=== PATIENT | male | born 1950 | race Caucasian/White ===

== ENCOUNTER 2024-02-20 22:03 | Emergency (ER) | payer MEDICARE, OTHER, SELFPAY ==
[2024-02-20] VITALS (16 sets, daily range): BP systolic 90–121; BP diastolic 63–81; PULSE 68–79; RESP 13–18; O2SAT 91–96
--- NOTE | 2024-02-20 22:14 | XRR_ITS ---
PROCEDURE INFORMATION: Exam: XR Chest Exam date and time: 02/20/2024 10:15 PM Age: 73 years old Clinical indication: Pain; Chest pressure; Prior surgery; Surgery date: <1 month; Surgery type: Cabg; Additional info: Chest pain TECHNIQUE: Imaging protocol: Radiologic exam of the chest. Views: 1 view. COMPARISON: No relevant prior studies available. FINDINGS: Lungs: Unremarkable. No consolidation. Pleural spaces: Unremarkable. No pleural effusion. No pneumothorax. Heart/Mediastinum: Unremarkable. No cardiomegaly. Bones/joints: Unremarkable. XR/XR chest 1V portable [id number] IMPRESSION: No acute findings.
--- NOTE | 2024-02-20 22:14 | ECG_ITS ---
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 Measurements Intervals [place] Rate: 77 P: 66 GA: 185 QRS: 121 QRSD: 107 T: 76 QT: 336 QTc: 381 Interpretive Statements SINUS RHYTHM INCOMPLETE RIGHT BUNDLE BRANCH BLOCK [90+ ms QRS DURATION, TERMINAL R IN V1/V2, 40+ ms S IN I/aVL/V4/V5/V6] POSSIBLE RIGHT VENTRICULAR HYPERTROPHY [SOME/ALL OF: PROMINENT R IN V1, LATE TRANSITION, RAD, ABDULAZIZ, SSS] PROBABLE INFERIOR MYOCARDIAL INFARCTION , OF INDETERMINATE AGE [35 ms Q WAVE IN II/aVF] No previous ECG available for comparison Electronically Signed On 02-21-2024 18:29:44 MONEY POSITION OFFICER by Oswaldo George M.D. [id number]
--- NOTE | 2024-02-20 22:25 | ED_ITS ---
HPI - Chest Pain 2 General: Chief Complaint: Chest Pain Stated Complaint: chest pain Time Seen by Provider: 02/20/24 22:14 History of Present Illness: Patient presents to the ER with a mild chest pressure/pain in his left chest that radiates to his left shoulder region. Patient said is hard to describe. Patient denies any shortness of breath, diaphoresis, nausea vomiting, patient does have a history of CAD with a three-vessel CABG done approximately a week and a half ago up at [place]. Patient was feeling better after the CABG up until a couple hours ago today. Patient is on Plavix. Related Data Allergies Allergy/AdvReac Type Severity Reaction Status Date / Time ramipril Allergy ADR-Diarrhe Verified 02/20/24 22:09 a Physical Exam 2 Const: COMMON NORMALS: no acute distress, average body habitus, patient oriented x3, no limitations, healthy appearing, alert and well nourished HENMT: COMMON NORMALS: normocephalic, atraumatic, hearing grossly normal bilaterally, external ears normal, Normal external nose present and moist oral mucous membranes HEAD & SCALP: normocephalic and atraumatic NOSE: Normal external nose present EXTERNAL EAR: Yes external ears normal Neck/C-Spine: COMMON NORMALS: no JVD Resp: COMMON NORMALS: normal respiratory effort, No retractions, No use of accessory muscles and clear to auscultation bilaterally AUSCULTATION: clear to auscultation bilaterally Cardio: COMMON NORMALS: no JVD, regular rate, regular rhythm, S1 normal heart sound present, S2 normal heart sound present, No gallops present (Cardio), No clicks present (Cardio), No murmurs present (Cardio) and No rub (Cardio) R ATE: regular rate RHYTHM: regular rhythm HEART SOUNDS: S1 normal heart sound present and S2 normal heart sound present GI: COMMON NORMALS: Normal to inspection, nondistended, normoactive bowel sounds present, Soft to palpation, non-tender, No hepatosplenomegaly present and no masses PALPATION: Yes Soft to palpation and Yes No hepatosplenomegaly present Neuro: COMMON NORMALS: patient oriented x3 SENSORIUM/ORIENTATION: Yes alert Course 2 Vital Signs: Vital signs: Vital Signs Pulse Rate 72 02/21/24 01:10 Respiratory Rate 18 02/21/24 01:10 Blood Pressure 110/74 02/21/24 01:10 Pulse Oximetry 97 02/21/24 01:10 Oxygen Delivery Me thod Room Air 02/20/24 22:59 MDM - Chest Pain Medical Decision Making Patient serial labs serial EKGs serial enzymes, elevated troponins due to his CABG will over a week ago, lab 52, 2-hour troponin was 1038, for decrease of 114 points, patient pain-free during his stay here. Patient's elevated BUN/creatinine of 45 and 2.2 as well as elevated liver enzymes of 59 and 101, these results was discussed with the patient and his son. Patient be discharged home. Medical Records I reviewed the patient's medical records. Lab Data I reviewed the patient's lab results. 02/20/24 22:25 02/20/24 22:25 Radiology Impressions Chest X-Ray 02/20/24 22:14 IMPRESSION: No acute findings. Laboratory Results WBC 12.70 10^3/uL (3.29-11.43) H 02/20/24 22:25 RBC 3.57 10^6/uL (3.85-5.65) L 02/20/24 22:25 Hgb 10.70 g/dL (11.27-16.99) L 02/20/24 22: Hct 32.9 % (37-53) L 02/20/24 22: MCV 92.2 fl (82-101) 02/20/24 22:25 MCH 30.0 pg (27-33) 02/20/24 22: MCHC 32.5 g/dL (30-55) 02/20/24 22: RDW 12.6 % (12.1-15.1) 02/20/24 22: Plt Count 338 10^3/cmm (157-399) 02/20/24 22:25 MPV 11.1 fL (7.4-10.4) H 02/20/24 22: Neut % (Auto) 71.7 % 02/20/24 22: Lymph % (Auto) 13.9 % 02/20/24 22: [place] % (Auto) 8.4 % 02/20/24 22: Eos % (Auto) 4.7 % 02/20/24 22: Baso % (Auto) 0.4 % 02/20/24 22: Neut # (Auto) 9.09 10^3/uL (1.8-7.7) H 02/20/24 22:25 Lymph # (Auto) 1.8 10^3/uL (0.8-4.8) 02/20/24 22:25 [place] # (Auto) 1.1 10^3/uL (0.2-0.9) H 02/20/24 22:25 Eos # (Auto) 0.6 10^3/uL (0.0-0.8) 02/20/24 22:25 Baso # (Auto) 0.1 10^3/uL (0.0-0.1) 02/20/24 22: Nucleated RBC % (auto) 0 % 02/20/24: Nucleated RBCs # 0.0 /100WBC 02/20/24 22:25 PT 15.40 SECONDS (12.1-14.9) H 02/20/24 22:25 INR 1.18 (0.8-1.2) 02/20/24 22:25 Sodium 136 mmol/L (136-145) 02/20/24 22:25 Potassium 4.2 mmol/L (3.5-5.1) 02/20/24 22:25 Chloride 100 mmol/L (98-107) 02/20/24 22:25 Carbon Dioxide 20 mmol/L (22-29) L 02/20/24 22:25 Anion Gap 20.2 (5-19) H 02/20/24 22:25 BUN 45 mg/dL (8-23) H 02/20/24 22:25 Creatinine 2.2 mg/dL (0.7-1.2) H 02/20/24 22:25 GFR Calculation Not Reportable 02/20/24 22:25 Glucose 212 mg/dL (65-115) H 02/20/24 22:25 Calculated Osmolality 300 mOsm/kg (285-295) H 02/20/24 22:25 Calcium 8.9 mg/dL (8.5-10.5) 02/20/24 22:25 Total Bilirubin 0.5 mg/dL (0.15-1.2) 02/20/24 22:25 AST 59 U/L (0-40) H 02/20/24 22:25 ALT 101 U/L (0-41) H 02/20/24 22:25 Alkaline Phosphatase 84 U/L (40-130) 02/20/24 22:25 Troponin T Baseline 1152 ng/L (0-15) H* 02/20/24 22:25 Troponin T 120 Minute 1038 ng/L (0-15) H 02/21/24 00:22 Delta Troponin T -114 ABS# (0-10) L 02/21/24 00:22 Total Protein 6.5 g/dL (6.6-8.7) L 02/20/24 22:25 Albumin 4.0 g/dL (3.5-5.2) 02/20/24 22:25 Globulin 2.5 g/dL (1.3-4.6) 02/20/24 22:25 All radiology interpretation(s) finalized by discharge Discharge Plan Discharge Patient Disposition: Home Clinical Impression: Acute kidney insufficiency Chest pain Qualifiers: Chest pain type: unspecified Qualified Code(s): R07.9 - Chest pain, unspecified Condition: Stable Discharge Orders: Discharge ED (Routine); Ordered 02/21/24 Ordered By: Eliazar Miranda Patient Instructions: Chest Pain (ED) Activity Restrictions/Additional Instructions: Thank you for choosing [facility] for your healthcare needs today. Please realize that you were seen in the emergency department and that we are providing you with an emergency medical screening exam and this may not be a complete and all exclusive of all testing and/or medical workup we may need to determine your element or severity of your illness. It is very important that you follow-up as instructed with your primary care provider or specialist for the additional evaluation and to discuss your medical treatment plan. You may return to the emergency department should you have concerns or if your condition changes or worsens in any way. Coding Level of Care Code ED Forester [employer] for Kaela Suárez
[2024-02-20 22:30] LABS: Basophils # 0.1 10^3/uL (0.0-0.1); Basophils % 0.4 %; Eosinophils # 0.6 10^3/uL (0.0-0.8); Eosinophils % 4.7 %; Hematocrit 32.9 % (37-53); Lymphocytes # 1.8 10^3/uL (0.8-4.8); Lymphocytes % 13.9 %; Mean Corpuscular HGB Conc 32.5 g/dL (30-55); Mean Corpuscular Volume 92.2 fl (82-101); Mean Platelet Volume 11.1 fL (7.4-10.4); Monocytes # 1.1 10^3/uL (0.2-0.9); Monocytes % 8.4 %; Neutrophils # 9.09 10^3/uL (1.8-7.7); Neutrophils % 71.7 %; Nucleated Red Blood Cells % 0 %; Platelet Count 338 10^3/cmm (157-399); Red Blood Count 3.57 10^6/uL (3.85-5.65); Red Cell Distribution Width 12.6 % (12.1-15.1)
[2024-02-20 22:45] LABS: INR 1.18 (0.8-1.2)
[2024-02-20] MEDS: nitroglycerin 0.4 mg sublingual Tablet SUBLINGUAL (22:47)
[2024-02-20] MEDS: morphine 4 mg/mL SDV 1 mL IVP (22:47)
[2024-02-20 22:54] LABS: Troponin(5th) Baseline 1152 ng/L (0-15)
[2024-02-20 22:58] LABS: Alanine Aminotransferase 101 U/L (0-41); Alkaline Phosphatase 84 U/L (40-130); Anion Gap 20.2 (5-19); Aspartate Amino Transferase 59 U/L (0-40); Blood Urea Nitrogen 45 mg/dL (8-23); Calcium 8.9 mg/dL (8.5-10.5); Carbon Dioxide 20 mmol/L (22-29); Chloride 100 mmol/L (98-107); Globulin 2.5 g/dL (1.3-4.6); Glucose 212 mg/dL (65-115); Osmolality Calculated 300 mOsm/kg (285-295); Potassium 4.2 mmol/L (3.5-5.1); Sodium 136 mmol/L (136-145); Total Bilirubin 0.5 mg/dL (0.15-1.2); Total Protein 6.5 g/dL (6.6-8.7)
[2024-02-21] VITALS (17 sets, daily range): BP systolic 110–129; BP diastolic 67–80; PULSE 69–73; RESP 12–21; O2SAT 94–98
--- NOTE | 2024-02-21 00:14 | ECG_ITS ---
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 Measurements Intervals [place] Rate: 72 P: 84 DE: 151 QRS: 152 QRSD: 117 T: 135 QT: 424 QTc: 466 Interpretive Statements SINUS RHYTHM INCOMPLETE RIGHT BUNDLE BRANCH BLOCK [90+ ms QRS DURATION, TERMINAL R IN V1/V2, 40+ ms S IN I/aVL/V4/V5/V6] POSSIBLE RIGHT VENTRICULAR HYPERTROPHY [SOME/ALL OF: PROMINENT R IN V1, LATE TRANSITION, RAD, ABDULAZIZ, SSS] INFERIOR MYOCARDIAL INFARCTION , OF INDETERMINATE AGE [40+ ms Q WAVE AND/OR ST/T ABNORMALITY IN II/aVF] Compared to ECG 02/20/2024 22:13:08 No significant changes Electronically Signed On 02-21-2024 18:38:24 BENCH ASSEMBLER by Oswaldo George M.D. [id number]
[2024-02-21 00:54] LABS: Troponin 5 2HR Delta -114 ABS# (0-10)
[2024-02-21 00:55] LABS: Troponin 5 2HR 1038 ng/L (0-15)
== END 2024-02-21 01:25 | disposition home or self-care (01) ==
PROVIDERS: Emergency Provider Emergency Medicine
DX: N28.9 Disorder of kidney and ureter, unspecified (principal); R07.9 Chest pain, unspecified
CPT/HCPCS: 36415; 71045; 80053; 84484; 85025; 85610; 93005; 96374; 99285; J2270

== ENCOUNTER 2024-02-21 21:58 | Emergency (ER) | payer MEDICARE, OTHER, SELFPAY ==
[2024-02-21] VITALS (20 sets, daily range): BP systolic 114–124; BP diastolic 71–90; PULSE 78–96; RESP 17–22; TEMP 36.6; O2SAT 91–96; BMI 33.2
--- NOTE | 2024-02-21 22:01 | CTR_ITS ---
PROCEDURE INFORMATION: Exam: CTA Chest With Contrast Exam date and time: 02/21/2024 10:12 PM Age: 73 years old Clinical indication: Pain; Shortness of breath; Chest pressure; Prior surgery; Surgery date: 3-7 days post-operative; Surgery type: Cabg one week ago; Patient HX: C/O chest discomfort with new onset of SOB starting today. ; Additional info: Sudden onset short of breath, recent cabg 1 week ago TECHNIQUE: Imaging protocol: Computed tomographic angiography of the chest with contrast. Exam focused on the arteries. 3D rendering (Not supervised by radiologist): MIP and/or 3D reconstructed images were created by the technologist. Radiation optimization: All CT scans at this facility use at least one of these dose optimization techniques: automated exposure control; mA and/or kV adjustment per patient size (includes targeted exams where dose is matched to clinical indication); or iterative reconstruction. Contrast material: OMNI 350; Contrast volume: 75 ml; Contrast route: INTRAVENOUS (IV); COMPARISON: CR (CHEST, ) 02/20/2024 10:15 PM RADIATION DOSE METRICS: Total DLP (mGy-cm): 420.59 FINDINGS: Pulmonary arteries: There is a pulmonary embolism in the pulmonary trunk extending to bilateral main pulmonary arteries , involving the right lower lobe, right middle and right upper lobe branches and left lower lobe and lingular branches. Aorta: Unremarkable. No aortic aneurysm. No aortic dissection. Thyroid: Calcified right thyroid nodule measuring 5 mm. Lungs: There are bilateral lower lobe dependent atelectasis. Patchy consolidation in the posterior basal segment of the right lower lobe. Pleural spaces: There is a small right pleural effusion. Heart: There is a small pericardial effusion. Heart RV/LV ratio: The RV to LV ratio is 1.2. Lymph nodes: Unremarkable. No enlarged lymph nodes. Bones/joints: Sternotomy wires and mediastinal surgical clips are present, consistent with previous coronary arterial bypass grafting. The thoracic spine demonstrates mild degenerative changes at multiple levels. Soft tissues: Unremarkable. CT/CT angio chest PE protcl [id number] IMPRESSION: 1. Large pulmonary embolism in the main pulmonary trunk and the major pulmonary arteries with findings of right heart strain. 2. Patchy consolidation in the posterior basal segment of the right lower lobe that might be related to pulmonary infarct. COMMENTS: Consistent with the [employer]'s Incidental Findings Committee white paper (J Am Ann Radiol 2015): In patients aged 35 years and older with an incidental thyroid nodule equal to or greater than 1.[address], MRI or extrathyroidal US, further evaluation with dedicated thyroid US is recommended for patients with normal life expectancy and without comorbidities. For smaller nodules without suspicious features, no further evaluation or follow up is recommended.
--- NOTE | 2024-02-21 22:01 | ECG_ITS ---
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 Measurements Intervals [place] Rate: 92 P: 72 VT: 170 QRS: 78 QRSD: 120 T: 45 QT: 400 QTc: 496 Interpretive Statements SINUS RHYTHM POSSIBLE INFERIOR MYOCARDIAL INFARCTION , OF INDETERMINATE AGE [30 ms Q WAVE IN II/aVF] Compared to ECG 02/21/2024 01:10:03 Incomplete right bundle-branch block no longer present Myocardial infarct finding still present Electronically Signed On 02-23-2024 20:09:20 HAIRSPRING CUTTER by Oswaldo George M.D. [id number]
--- NOTE | 2024-02-21 22:11 | ED_ITS ---
Documented by User: Eliazar Miranda, DO 02/23/24 05:47 HPI - SOB/Dyspnea 2 General: Chief Complaint: Shortness of Breath/Dyspnea Stated Complaint: SOB Time Seen by Provider: 02/21/24 22:00 History of Present Illness: HPI Narrative: Patient is to the ER with complaints of sudden onset shortness of breath today. Patient had a CABG up at [facility] approximately week ago. He was seen last night in this ER for chest pain that radiated to his shoulder. After serial EKGs and serial enzymes he was sent home patient was pain-free during his stay here in ER. He went home and was doing normal up walking around with no complaints until this afternoon he just suddenly got short of breath and was not able to walk any more than 2 or 3 steps or about 10 feet before just getting totally winded and out of breath. This Getting worse still had to call 911 to bring him here for further evaluation. Patient is currently on Plavix. Upon arrival patient was wearing 2 L of oxygen that he normally does not wear and his O2 sat was 94%. Related Data Home Medications Medication Instructions Recorded Confirmed amiodarone 400 mg tablet 400 mg PO DAILY 02/22/24 02/22/24 aspirin 81 mg tablet,delayed 81 mg PO DAILY 02/22/24 02/22/24 release atorvastatin 40 mg tablet 40 mg PO DAILY 02/22/24 02/22/24 clopidogrel 75 mg tablet 75 mg PO DAILY 02/22/24 02/22/24 empagliflozin 10 mg tablet 10 mg PO DAILY 02/22/24 02/22/24 (Jardiance) furosemide 40 mg tablet 40 mg PO DAILY 02/22/24 02/22/24 glucagon 1 mg/0.2 mL subcutaneous 1 mg SUBCUT PRN 02/22/24 02/22/24 auto-injector (Gvoke HypoPen 2-Pack) insulin glargine 100 unit/mL (3 22 unit SUBCUT QPM 02/22/24 02/22/24 mL) subcutaneous pen (Lantus Solostar U-100 Insulin) latanoprost 0.005 % eye drops 1 drp ophthalmic (eye) DAILY 02/22/24 02/22/24 metoprolol tartrate 25 mg tablet 12.5 mg PO BID 02/22/24 02/22/24 potassium chloride 20 mEq 20 meq PO DAILY 02/22/24 02/22/24 tablet,extended release semaglutide 7 mg tablet (Rybelsus) 7 mg PO DAILY 02/22/24 02/22/24 tamsulosin 0.4 mg capsule 0.4 mg PO DAILY 02/22/24 02/22/24 Allergies Allergy/AdvReac Type Severity Reaction Status Date / Time ramipril Allergy ADR-Diarrhe Verified 02/21/24 22:10 a Review of Systems 2 General: Reports: 10 or more systems reviewed and unremarkable except in HPI and below Physical Exam 2 Const: COMMON NORMALS: no acute distress, average body habitus, patient oriented x3, no limitations, healthy appearing, alert and well nourished HENMT: COMMON NORMALS: normocephalic, atraumatic, hearing grossly normal bilaterally, external ears normal, Normal external nose present and moist oral mucous membranes HEAD & SCALP: normocephalic and atraumatic NOSE: Normal external nose present EXTERNAL EAR: Yes external ears normal Neck/C-Spine: COMMON NORMALS: no JVD Resp: COMMON NORMALS: normal respiratory effort, No retractions, No use of accessory muscles and clear to auscultation bilaterally AUSCULTATION: clear to auscultation bilaterally Cardio: COMMON NORMALS: no JVD, regular rate, regular rhythm, S1 normal heart sound present, S2 normal heart sound present, No gallops present (Cardio), No clicks present (Cardio), No murmurs present (Cardio) and No rub (Cardio) R ATE: regular rate RHYTHM: regular rhythm HEART SOUNDS: S1 normal heart sound present and S2 normal heart sound present GI: COMMON NORMALS: Normal to inspection, nondistended, normoactive bowel sounds present, Soft to palpation, non-tender, No hepatosplenomegaly present and no masses PALPATION: Yes Soft to palpation and Yes No hepatosplenomegaly present Neuro: COMMON NORMALS: patient oriented x3 SENSORIUM/ORIENTATION: Yes alert Course 2 Vital Signs: Vital signs: Vital Signs Temperature 97.9 F 02/21/24 22:01 Pulse Rate 89 02/23/24 07:30 Respiratory Rate 18 02/23/24 07:30 Blood Pressure 122/76 02/23/24 07:30 Pulse Oximetry 93 02/23/24 07:30 Oxygen Delivery Me thod Nasal Cannula 02/23/24 05:45 Oxygen Flow Rate 4 02/23/24 05:45 MDM - SOB/Dyspnea Medical Decision Making Patient has a large PE with right heart strain, patient needs 2 L oxygen to keep sat upwards of 90%. These results was talked with Dr. Smith at [facility]. Patient was started on a heparin drip bolus and drip. Patient be transferred up to [facility]. For further care. 02/22/2024 11:53 AM [facility] unable to tell us when they will have a room available. Family members are asking for other transfer options are concerned about the delay and transfer to definitive care. We contacted [facility] through their transfer process ultimately Dr. Menon one of their hospitalist refuses to accept the patient's because he was previously seen at [facility]. We did inform them that while he has been accepted there were uncertain of how long it will take to get him there. [facility] transfer line did tell us that they had beds available. They are now refusing to accept him because he has been at [facility] previously. Will continue to look for other options. Patient continues on oxygen supplementation along with heparin. At the family's request we also contacted [facility] did not have any available beds additionally we contacted in [place] they did not have any beds at [place] and unfortunately they only had beds at [facility] but they did not have available interventional radiology there so they were not able to accept the patient. Patient is continuing on heparin at this time care turned over to Dr. Miranda again. [address] eventually excepted the patient Dr. Guerrero ER physician. Lab Data 02/23/24 04:08 02/21/24 21:53 Labs/Radiology: Radiology Impressions Chest CTA 02/21/24 22:01 IMPRESSION: 1. Large pulmonary embolism in the main pulmonary trunk and the major pulmonary arteries with findings of right heart strain. 2. Patchy consolidation in the posterior basal segment of the right lower lobe that might be related to pulmonary infarct. COMMENTS: Consistent with the [place] [employer]'s Incidental Findings Committee white paper (J Am Ann Radiol 2015): In patients aged 35 years and older with an incidental thyroid nodule equal to or greater than 1.[address], MRI or extrathyroidal US, further evaluation with dedicated thyroid US is recommended for patients with normal life expectancy and without comorbidities. For smaller nodules without suspicious features, no further evaluation or follow up is recommended. ADDENDUM: 12/2247 THIS REPORT CONTAINS FINDINGS THAT MAY BE CRITICAL TO PATIENT CARE. The findings were verbally communicated via telephone conference with Eliazar Miranda at 10:46 PM SALES ENABLEMENT LEAD on 02/21/2024. The findings were acknowledged and understood. Laboratory Results WBC 14.08 10^3/uL (3.29-11.43) H 02/21/24 21:53 RBC 3.95 10^6/uL (3.85-5.65) 02/21/24 21:53 Hgb 11.90 g/dL (11.27-16.99) 02/21/24 21:53 Hct 36.6 % (37-53) L 02/21/24 21:53 MCV 92.7 fl (82-101) 02/21/24 21:53 MCH 30.1 pg (27-33) 02/21/24 21:53 MCHC 32.5 g/dL (30-55) 02/21/24 21:53 RDW 12.9 % (12.1-15.1) 02/21/24 21:53 Plt Count 314 10^3/cmm (157-399) 02/23/24 04:08 MPV 11.6 fL (7.4-10.4) H 02/21/24 21:53 Neut % (Auto) 76.4 % 02/21/24 21:53 Lymph % (Auto) 13.0 % 02/21/24 21:53 [place] % (Auto) 7.0 % 02/21/24 21:53 Eos % (Auto) 2.1 % 02/21/24 21:53 Baso % (Auto) 0.4 % 02/21/24 21:53 Neut # (Auto) 10.74 10^3/uL (1.8-7.7) H 02/21/24 21:53 Lymph # (Auto) 1.8 10^3/uL (0.8-4.8) 02/21/24 21:53 [place] # (Auto) 1.0 10^3/uL (0.2-0.9) H 02/21/24 21:53 Eos # (Auto) 0.3 10^3/uL (0.0-0.8) 02/21/24 21:53 Baso # (Auto) 0.1 10^3/uL (0.0-0.1) 02/21/24 21:53 Nucleated RBC % (auto) 0 % 02/21/24 21:53 Nucleated RBCs # 0.0 /100WBC 02/21/24 21:53 PT 15.00 SECONDS (12.1-14.9) H 02/21/24 21:53 INR 1.14 (0.8-1.2) 02/21/24 21:53 APTT 92.5 SECONDS (23.9-36.7) H D 02/23/24 06:55 Sodium 137 mmol/L (136-145) 02/21/24 21:53 Potassium 4.8 mmol/L (3.5-5.1) 02/21/24 21:53 Chloride 99 mmol/L (98-107) 02/21/24 21:53 Carbon Dioxide 20 mmol/L (22-29) L 02/21/24 21:53 Anion Gap 22.8 (5-19) H 02/21/24 21:53 BUN 47 mg/dL (8-23) H 02/21/24 21:53 Creatinine 2.3 mg/dL (0.7-1.2) H 02/21/24 21:53 GFR Calculation Not Reportable 02/21/24 21:53 Glucose 219 mg/dL (65-115) H 02/21/24 21:53 Calculated Osmolality 303 mOsm/kg (285-295) H 02/21/24 21:53 Calcium 9.5 mg/dL (8.5-10.5) 02/21/24 21:53 Total Bilirubin 0.7 mg/dL (0.15-1.2) 02/21/24 21:53 AST 42 U/L (0-40) H 02/21/24 21:53 ALT 94 U/L (0-41) H 02/21/24 21:53 Alkaline Phosphatase 100 U/L (40-130) 02/21/24 21:53 Troponin T Baseline 748 ng/L (0-15) H* 02/21/24 21:53 Troponin T 120 Minute 704.7 ng/L (0-15) H 02/22/24 00:05 Delta Troponin T -43.3 ABS# (0-10) L 02/22/24 00:05 Troponin T Hi Sens 6Hr 646.3 ng/L (0-15) H 02/22/24 04:30 Troponin T Hi Sens 6Hr Delta -101.7 ng/L (0-12) L 02/22/24 04:30 NT-Pro-B Natriuret Pep 2968 pg/mL (0-125) H 02/21/24 21:53 NT-Pro-B Natriuret Pep Cancelled 02/21/24 21:53 Total Protein 7.7 g/dL (6.6-8.7) 02/21/24 21:53 Albumin 4.3 g/dL (3.5-5.2) 02/21/24 21:53 Globulin 3.4 g/dL (1.3-4.6) 02/21/24 21:53 Coronavirus (PCR) Negative (Negative) 02/21/24 22:28 Influenza A (PCR) Negative (Negative) 02/21/24 22:28 Influenza Type B (PCR) Negative (Negative) 02/21/24 22:28 RSV (PCR) Negative (Negative) 02/21/24 22:28 All radiology interpretation(s) finalized by discharge Discharge Plan Discharge Patient Disposition: Xfer Short-Term Hosp Clinical Impression: Acute hypoxic respiratory failure Pulmonary embolism Qualifiers: Pulmonary embolism type: saddle Chronicity: acute Acute cor pulmonale presence: with acute cor pulmonale Qualified Code(s): I26.02 - Saddle embolus of pulmonary artery with acute cor pulmonale Condition: Stable Coding Level of Care Code ED Level Vial Inside Grinder for g Fwd Documented by User: Juwan Barnes DO 02/24/24 16:01 HPI - SOB/Dyspnea 2 General: Chief Complaint: Shortness of Breath/Dyspnea Stated Complaint: SOB Time Seen by Provider: 02/21/24 22:00 Related Data Home Medications Medication Instructions Recorded Confirmed amiodarone 400 mg tablet 400 mg PO DAILY 02/22/24 02/22/24 aspirin 81 mg tablet,delayed 81 mg PO DAILY 02/22/24 02/22/24 release atorvastatin 40 mg tablet 40 mg PO DAILY 02/22/24 02/22/24 clopidogrel 75 mg tablet 75 mg PO DAILY 02/22/24 02/22/24 empagliflozin 10 mg tablet 10 mg PO DAILY 02/22/24 02/22/24 (Jardiance) furosemide 40 mg tablet 40 mg PO DAILY 02/22/24 02/22/24 glucagon 1 mg/0.2 mL subcutaneous 1 mg SUBCUT PRN 02/22/24 02/22/24 auto-injector (Gvoke HypoPen 2-Pack) insulin glargine 100 unit/mL (3 22 unit SUBCUT QPM 02/22/24 02/22/24 mL) subcutaneous pen (Lantus Solostar U-100 Insulin) latanoprost 0.005 % eye drops 1 drp ophthalmic (eye) DAILY 02/22/24 02/22/24 metoprolol tartrate 25 mg tablet 12.5 mg PO BID 02/22/24 02/22/24 potassium chloride 20 mEq 20 meq PO DAILY 02/22/24 02/22/24 tablet,extended release semaglutide 7 mg tablet (Rybelsus) 7 mg PO DAILY 02/22/24 02/22/24 tamsulosin 0.4 mg capsule 0.4 mg PO DAILY 02/22/24 02/22/24 Allergies Allergy/AdvReac Type Severity Reaction Status Date / Time ramipril Allergy ADR-Diarrhe Verified 02/21/24 22:10 a Course 2 Vital Signs: Vital signs: Vital Signs Temperature 97.9 F 02/21/24 22:01 Pulse Rate 89 02/23/24 07:30 Respiratory Rate 18 02/23/24 07:30 Blood Pressure 122/76 02/23/24 07:30 Pulse Oximetry 93 02/23/24 07:30 Oxygen Delivery Me thod Nasal Cannula 02/23/24 05:45 Oxygen Flow Rate 4 02/23/24 05:45 MDM - SOB/Dyspnea Medical Decision Making Patient has a large PE with right heart strain, patient needs 2 L oxygen to keep sat upwards of 90%. These results was talked with Dr. Smith at [facility]. Patient was started on a heparin drip bolus and drip. Patient be transferred up to [facility] For further care. 02/22/2024 11:53 AM [facility] unable to tell us when they will have a room available. Family members are asking for other transfer options are concerned about the delay and transfer to definitive care. We contacted [facility] through their transfer process ultimately Dr. Menon one of their hospitalist refuses to accept the patient's because he was previously seen at [facility]. We did inform them that while he has been accepted there were uncertain of how long it will take to get him there. [facility] transfer line did tell us that they had beds available. They are now refusing to accept him because he has been at [facility] previously. Will continue to look for other options. Patient continues on oxygen supplementation along with heparin. At the family's request we also contacted [facility] did not have any available beds additionally we contacted in [place] they did not have any beds at [place] and unfortunately they only had beds at [facility] but they did not have available interventional radiology there so they were not able to accept the patient. Patient is continuing on heparin at this time care turned over to Dr. Miranda again. Medical Records I reviewed the patient's medical records. Lab Data I reviewed the patient's lab results. 02/23/24 04:08 02/21/24 21:53 Labs/Radiology: Radiology Impressions Chest CTA 02/21/24 22:01 IMPRESSION: 1. Large pulmonary embolism in the main pulmonary trunk and the major pulmonary arteries with findings of right heart strain. 2. Patchy consolidation in the posterior basal segment of the right lower lobe that might be related to pulmonary infarct. COMMENTS: Consistent with the [place] [employer]'s Incidental Findings Committee white paper (J Am Ann Radiol 2015): In patients aged 35 years and older with an incidental thyroid nodule equal to or greater than 1.[address], MRI or extrathyroidal US, further evaluation with dedicated thyroid US is recommended for patients with normal life expectancy and without comorbidities. For smaller nodules without suspicious features, no further evaluation or follow up is recommended. ADDENDUM: 02/21/24 2248 THIS REPORT CONTAINS FINDINGS THAT MAY BE CRITICAL TO PATIENT CARE. The findings were verbally communicated via telephone conference with Eliazar Miranda at 10:46 PM SALES ENABLEMENT LEAD on 02/21/2024. The findings were acknowledged and understood. Laboratory Results WBC 14.08 10^3/uL (3.29-11.43) H 02/21/24 21:53 RBC 3.95 10^6/uL (3.85-5.65) 02/21/24 21:53 Hgb 11.90 g/dL (11.27-16.99) 02/21/24 21:53 Hct 36.6 % (37-53) L 02/21/24 21:53 MCV 92.7 fl (82-101) 02/21/24 21:53 MCH 30.1 pg (27-33) 02/21/24 21:53 MCHC 32.5 g/dL (30-55) 02/21/24 21:53 RDW 12.9 % (12.1-15.1) 02/21/24 21:53 Plt Count 314 10^3/cmm (157-399) 02/23/24 04:08 MPV 11.6 fL (7.4-10.4) H 02/21/24 21:53 Neut % (Auto) 76.4 % 02/21/24 21:53 Lymph % (Auto) 13.0 % 02/21/24 21:53 [place] % (Auto) 7.0 % 02/21/24 21:53 Eos % (Auto) 2.1 % 02/21/24 21:53 Baso % (Auto) 0.4 % 02/21/24 21:53 Neut # (Auto) 10.74 10^3/uL (1.8-7.7) H 02/21/24 21:53 Lymph # (Auto) 1.8 10^3/uL (0.8-4.8) 02/21/24 21:53 [place] # (Auto) 1.0 10^3/uL (0.2-0.9) H 02/21/24 21:53 Eos # (Auto) 0.3 10^3/uL (0.0-0.8) 02/21/24 21:53 Baso # (Auto) 0.1 10^3/uL (0.0-0.1) 02/21/24 21:53 Nucleated RBC % (auto) 0 % 02/21/24 21:53 Nucleated RBCs # 0.0 /100WBC 02/21/24 21:53 PT 15.00 SECONDS (12.1-14.9) H 02/21/24 21:53 INR 1.14 (0.8-1.2) 02/21/24 21:53 APTT 92.5 SECONDS (23.9-36.7) H D 02/23/24 06:55 Sodium 137 mmol/L (136-145) 02/21/24 21:53 Potassium 4.8 mmol/L (3.5-5.1) 02/21/24 21:53 Chloride 99 mmol/L (98-107) 02/21/24 21:53 Carbon Dioxide 20 mmol/L (22-29) L 02/21/24 21:53 Anion Gap 22.8 (5-19) H 02/21/24 21:53 BUN 47 mg/dL (8-23) H 02/21/24 21:53 Creatinine 2.3 mg/dL (0.7-1.2) H 02/21/24 21:53 GFR Calculation Not Reportable 02/21/24 21:53 Glucose 219 mg/dL (65-115) H 02/21/24 21:53 Calculated Osmolality 303 mOsm/kg (285-295) H 02/21/24 21:53 Calcium 9.5 mg/dL (8.5-10.5) 02/21/24 21:53 Total Bilirubin 0.7 mg/dL (0.15-1.2) 02/21/24 21:53 AST 42 U/L (0-40) H 02/21/24 21:53 ALT 94 U/L (0-41) H 02/21/24 21:53 Alkaline Phosphatase 100 U/L (40-130) 02/21/24 21:53 Troponin T Baseline 748 ng/L (0-15) H* 02/21/24 21:53 Troponin T 120 Minute 704.7 ng/L (0-15) H 02/22/24 00:05 Delta Troponin T -43.3 ABS# (0-10) L 02/22/24 00:05 Troponin T Hi Sens 6Hr 646.3 ng/L (0-15) H 02/22/24 04:30 Troponin T Hi Sens 6Hr Delta -101.7 ng/L (0-12) L 02/22/24 04:30 NT-Pro-B Natriuret Pep 2968 pg/mL (0-125) H 02/21/24 21:53 NT-Pro-B Natriuret Pep Cancelled 02/21/24 21:53 Total Protein 7.7 g/dL (6.6-8.7) 02/21/24 21:53 Albumin 4.3 g/dL (3.5-5.2) 02/21/24 21:53 Globulin 3.4 g/dL (1.3-4.6) 02/21/24 21:53 Coronavirus (PCR) Negative (Negative) 02/21/24 22:28 Influenza A (PCR) Negative (Negative) 02/21/24 22:28 Influenza Type B (PCR) Negative (Negative) 02/21/24 22:28 RSV (PCR) Negative (Negative) 02/21/24 22:28 Discharge Plan Discharge Patient Disposition: Xfer Short-Term Hosp Clinical Impression: Acute hypoxic respiratory failure Pulmonary embolism Qualifiers: Pulmonary embolism type: saddle Chronicity: acute Acute cor pulmonale presence: with acute cor pulmonale Qualified Code(s): I26.02 - Saddle embolus of pulmonary artery with acute cor pulmonale Condition: Stable Coding Level of Care Code ED Level Vial Inside Grinder for Kaela Suárez
[2024-02-21] MEDS: iohexol 350 mg/mL 500 mL Btl (per mL) IV (22:13)
[2024-02-21 22:18] LABS: Basophils # 0.1 10^3/uL (0.0-0.1); Basophils % 0.4 %; Eosinophils # 0.3 10^3/uL (0.0-0.8); Eosinophils % 2.1 %; Hematocrit 36.6 % (37-53); Lymphocytes # 1.8 10^3/uL (0.8-4.8); Mean Corpuscular HGB Conc 32.5 g/dL (30-55); Mean Corpuscular Hemoglobin 30.1 pg (27-33); Mean Corpuscular Volume 92.7 fl (82-101); Mean Platelet Volume 11.6 fL (7.4-10.4); Neutrophils # 10.74 10^3/uL (1.8-7.7); Neutrophils % 76.4 %; Nucleated Red Blood Cells % 0 %; Platelet Count 363 10^3/cmm (157-399); Red Blood Count 3.95 10^6/uL (3.85-5.65); Red Cell Distribution Width 12.9 % (12.1-15.1); White Blood Count 14.08 10^3/uL (3.29-11.43)
[2024-02-21 22:31] LABS: INR 1.14 (0.8-1.2)
[2024-02-21 22:41] LABS: Alanine Aminotransferase 94 U/L (0-41); Albumin Level 4.3 g/dL (3.5-5.2); Alkaline Phosphatase 100 U/L (40-130); Anion Gap 22.8 (5-19); Aspartate Amino Transferase 42 U/L (0-40); Blood Urea Nitrogen 47 mg/dL (8-23); Calcium 9.5 mg/dL (8.5-10.5); Carbon Dioxide 20 mmol/L (22-29); Chloride 99 mmol/L (98-107); Globulin 3.4 g/dL (1.3-4.6); Glucose 219 mg/dL (65-115); Osmolality Calculated 303 mOsm/kg (285-295); Potassium 4.8 mmol/L (3.5-5.1); Sodium 137 mmol/L (136-145); Total Bilirubin 0.7 mg/dL (0.15-1.2); Total Protein 7.7 g/dL (6.6-8.7)
[2024-02-21] MEDS: heparin 5,000 unit/mL INJ 1 mL IVP (22:41)
[2024-02-21 22:42] LABS: Troponin(5th) Baseline 748 ng/L (0-15)
[2024-02-21] MEDS: heparin drip 25,000 UNIT/500 ML PREMIX 26.93 UNIT IV (22:45)
[2024-02-21 22:48] LABS: NT Pro B Type Natriuretic Pept 2968 pg/mL (0-125)
[2024-02-21 23:09] LABS: Covid PCR NEGATIVE (Negative); Influenza A NEGATIVE (Negative); Influenza B NEGATIVE (Negative); Respiratory Syncytial Virus Ce NEGATIVE (Negative)
[2024-02-22] VITALS (96 sets, daily range): BP systolic 90–149; BP diastolic 53–93; PULSE 78–103; RESP 17–28; O2SAT 88–96
[2024-02-22 00:28] LABS: Troponin 5 2HR 704.7 ng/L (0-15); Troponin 5 2HR Delta -43.3 ABS# (0-10)
--- NOTE | 2024-02-22 03:22 | ECG_ITS ---
[facility]: 2024-02-22 Pat Name: Alexis Aquino Department: Room: Gender: Male Mass Spec: : 1950 Requested By: Eliazar Miranda Order Number: [id number] Sherly MD: Oswaldo George M.D. Measurements Intervals [place] Rate: 91 P: 73 OR: 175 QRS: 89 QRSD: 121 T: 81 QT: 313 QTc: 386 Interpretive Statements SINUS RHYTHM WITH OCCASIONAL VENTRICULAR PREMATURE COMPLEXES POSSIBLE INFERIOR MYOCARDIAL INFARCTION , OF INDETERMINATE AGE [30 ms Q WAVE IN II/aVF] Compared to ECG 02/21/2024 22:04:15 Ventricular premature complex(es) now present Myocardial infarct finding still present Electronically Signed On 02-23-2024 20:16:52 VC++ DEVELOPER by Oswaldo George M.D. [email or web address]
[2024-02-22 05:20] LABS: Troponin 5 6HR 646.3 ng/L (0-15); Troponin 5 6HR Delta -101.7 ng/L (0-12)
[2024-02-22 05:31] LABS: Partial Thromboplastin Time 131.8 SECONDS (23.9-36.7)
--- NOTE | 2024-02-22 07:05 | PC.NURSE ---
took over pt care @ 1802 from JEAN PIERRE Mina.
[2024-02-22 11:38] LABS: Partial Thromboplastin Time 68.5 SECONDS (23.9-36.7)
--- NOTE | 2024-02-22 11:50 | PC.NURSE ---
when PTT resulted, it was 68.5, per protocol there is no change in titration. new order for PTT to be drawn at 1745 per protocol has been put in
[2024-02-22 18:03] LABS: Partial Thromboplastin Time 62.4 SECONDS (23.9-36.7)
--- NOTE | 2024-02-22 18:04 | PC.NURSE ---
Addendum entered by Fabiola Davis RN 02/22/24 18:06: new order for PTT to be drawn at 0000 on 02/23/2024 per protocol. Original Note: heparin drip not titrated at this time per protocol with pts PTT being 62.4.
--- NOTE | 2024-02-22 19:15 | PC.NURSE ---
Rounded on pt. Pt in hospital bed on O2. Resp even/unlabored at this time. Skin w/p/d. Pt provided a sandwich and drink at pt request and MD approval. Denies further needs at this time. Family at bedside.
[2024-02-22] MEDS: heparin drip 25,000 UNIT/500 ML PREMIX 21.16 UNIT IV (20:49)
--- NOTE | 2024-02-22 23:45 | PC.NURSE ---
Rounded on pt. 800ml urine output from drainage bag. Pt denies needs. Call light in reach. Resp even/unlabored. Skin w/p/d
[2024-02-23] VITALS (32 sets, daily range): BP systolic 94–134; BP diastolic 70–84; PULSE 85–95; RESP 17–23; O2SAT 87–95
[2024-02-23 00:39] LABS: Partial Thromboplastin Time 32.8 SECONDS (23.9-36.7)
--- NOTE | 2024-02-23 00:58 | PC.NURSE ---
Per heparin protocol, drip titrated to 27ml/hr. During titration, left AC IV noted to be infiltrated. IV DC'd at this time. Cool compress applied and elevated extremity.
--- NOTE | 2024-02-23 04:00 | PC.NURSE ---
Pt assisted to bedside commode. Tolerated well. Pt with BM at this time.
[2024-02-23 04:21] LABS: Platelet Count 314 10^3/cmm (157-399)
--- NOTE | 2024-02-23 07:19 | PC.NURSE ---
took over pt care from JEAN PIERRE Sales @ 8874
[2024-02-23 07:32] LABS: Partial Thromboplastin Time 92.5 SECONDS (23.9-36.7)
== END 2024-02-23 07:40 | disposition short-term general hospital (02) ==
PROVIDERS: Emergency Medicine; Emergency Provider Family Medicine
DX: J96.01 Acute respiratory failure with hypoxia (principal); I26.02 Saddle embolus of pulmonary artery with acute cor pulmonale; Z11.52 Encounter for screening for COVID-19
CPT/HCPCS: 51702; 71275; 80053; 83880; 84484; 85025; 85049; 85610; 85730; 87637; 93005; 96365; 96366; 96375; 99285; J1644